=== PATIENT | female | born 1975 | race Hispanic/Latino ===

== ENCOUNTER 2017-12-31 16:36 | Emergency (ER) | payer SELFPAY, OTHER ==
[2017-12-31] MEDS ORDERED: Acetaminophen/Codeine 30-300mg Tablet ONE (18:54)
== END 2017-12-31 18:51 | disposition home or self-care (01) ==
LOC: ERS 16:36
DX: G89.29 Other chronic pain (principal); M25.461 Effusion, right knee; F41.9 Anxiety disorder, unspecified; Z87.891 Personal history of nicotine dependence
CPT/HCPCS: 99283

== ENCOUNTER 2018-07-27 05:56 | Emergency (ER) | payer OTHER, SELFPAY ==
[2018-07-27 06:25] LABS: Bilirubin Negative (Negative); Blood, Urine Negative (Negative); Clarity CLEAR (Clear); Glucose, Urine (Dipstick) >=1000 mg/dL (Negative); Leukocyte Negative (Negative); Nitrite Negative (Negative); Protein, Urine (Dipstick) Negative (Neg-Trace); Urobilinogen 0.2 mg/dL (0.2-1.0); pH, Urine 5.5 (5.0-9.0)
== END 2018-07-27 06:30 | disposition home or self-care (01) ==
LOC: ERS 05:56
DX: N76.0 Acute vaginitis (principal); L02.31 Cutaneous abscess of buttock; F41.9 Anxiety disorder, unspecified; Z87.891 Personal history of nicotine dependence
CPT/HCPCS: 81003; 99283

== ENCOUNTER 2019-12-22 13:12 | Outpatient (CLI) | payer OTHER ==
--- NOTE | 2019-12-22 16:05 | MMO ---
Bilateral MAMMO Bilat Screen DDI+RODRIGO. CLINICAL HISTORY: Patient is 44 years old and is seen for screening. The patient has the following family history of breast cancer: 2 maternal aunts. The patient has no personal history of cancer. VIEWS: The views performed were: bilateral craniocaudal and bilateral mediolateral oblique. FILMS COMPARED: The present examination has been compared to a prior imaging study performed at [facility] on 11/18/2014. This study has been interpreted with the assistance of computer-aided detection. MAMMOGRAM FINDINGS: There are scattered fibroglandular densities. There are new tiny calcs in the left upper outer breast. In the right breast, there are no suspicious masses, calcifications or areas of architectural distortion. IMPRESSION: FINDING IN THE LEFT BREAST REQUIRES ADDITIONAL EVALUATION. MAGNIFICATION VIEWS ARE RECOMMENDED. THE RESULTS OF THIS EXAM WERE SENT TO THE PATIENT. ACR BI-RADS Category 0 - Incomplete: Need additional imaging evaluation. [facility] will notify the patient of the need for additional imaging services. MAMMOGRAPHY NOTE: 1. A negative mammogram report should not delay a biopsy if a dominant of clinically suspicious mass is present. 2. Approximately 10% to 15% of breast cancers are not detected by mammography. 3. Adenosis and dense breasts may obscure an underlying neoplasm. Reported by: BABAR ACOSTA MD Electonically Signed: [id number]
== END 2019-12-22 13:13 | disposition home or self-care (01) ==
LOC: BICMAMMO 13:12
DX: Z12.31 Encounter for screening mammogram for malignant neoplasm of breast (principal); Z80.3 Family history of malignant neoplasm of breast
CPT/HCPCS: 77063; 77067

== ENCOUNTER 2020-01-08 13:53 | Outpatient (CLI) | payer OTHER ==
--- NOTE | 2020-01-08 14:22 | MMO ---
Left Breast MAMMO Unilat Diag DDI LT+RODRIGO. CLINICAL HISTORY: Patient is 44 years old and is seen for additional evaluation requested from prior study. The patient has the following family history of breast cancer: 2 maternal aunts. The patient has no personal history of cancer. VIEWS: The views performed were: left craniocaudal spot compression magnification; left mediolateral spot compression magnification; and left mediolateral with tomosynthesis. FILMS COMPARED: The present examination has been compared to prior imaging studies performed at [facility] on 11/18/2014 and 12/22/2019. This study has been interpreted with the assistance of computer-aided detection. MAMMOGRAM FINDINGS: There are scattered fibroglandular densities. The tiny new calcs in the left upper outer breast are indeterminate and should be biopsied. IMPRESSION: FINDING IN THE LEFT BREAST IS SUSPICIOUS. A STEREOTACTIC BREAST BIOPSY IS RECOMMENDED. THE RESULTS OF THIS EXAM WERE SENT TO THE PATIENT. ACR BI-RADS Category 4 - Suspicious abnormality - biopsy should be considered D/W pt in person @ 1420 hrs. MAMMOGRAPHY NOTE: 1. A negative mammogram report should not delay a biopsy if a dominant of clinically suspicious mass is present. 2. Approximately 10% to 15% of breast cancers are not detected by mammography. 3. Adenosis and dense breasts may obscure an underlying neoplasm. Reported by: BABAR ACOSTA MD Electonically Signed: [id number]
== END 2020-01-08 13:54 | disposition home or self-care (01) ==
LOC: BICMAMMO 13:53
PROVIDERS: ATTEND Nurse Practitioner Family
DX: R92.1 Mammographic calcification found on diagnostic imaging of breast (principal)
CPT/HCPCS: G0279

== ENCOUNTER 2020-01-26 04:08 | Emergency (ER) | payer SELFPAY ==
[2020-01-26 04:51] LABS: Bilirubin Negative (Negative); Blood, Urine Negative (Negative); Clarity Clear (Clear); Glucose, Urine (Dipstick) 100 mg/dL (Negative); Leukocyte Negative Leu/uL (Negative); Nitrite Negative (Negative); Protein, Urine (Dipstick) Negative (Neg-Trace); Urobilinogen Normal mg/dL (Less than 2)
[2020-01-26 04:55] LABS: #Eosinphils 0.1 thou/uL (0.0-0.7); #Lymphocytes 2.6 thou/uL (1.20-3.40); #Monocytes 0.5 thou/uL (0.11-0.59); #Neutrophils 5.8 thou/uL (1.40-6.50); %Basophils 0.4 % (0.0-1.0); %Eosinophils 1.6 % (0.0-10.0); %Monocytes 5.2 % (0.0-10.0); %Neutrophils 63.8 % (42.0-75.0); Hemoglobin 11.4 g/dL (12.0-16.0); Mean Corpuscular HGB CONC 32.7 g/dL (32.0-36.0); Mean Corpuscular Hemoglobin 24.6 pg (27.0-31.0); Mean Corpuscular Volume 75.4 fL (78.0-98.0); Mean Platelet Volume 8.4 fL (7.4-10.4); Platelet Count 296 thou/uL (130-400); RBC Distribution Width 15.2 % (11.5-14.5); Red Blood Cell (RBC) Count 4.63 mill/uL (4.20-5.40); White Blood Cell (WBC) Count 9.1 thou/uL (4.8-10.8)
[2020-01-26 05:18] LABS: ALT (SGPT) 11 U/L (8-55); AST (SGOT) 14 U/L (5-34); Alkaline Phosphatase 114 U/L (40-110); Anion Gap 15 mmol/L (10-20); BUN (Urea Nitrogen) 8 mg/dL (7.0-18.7); Bilirubin, Total 0.4 mg/dL (0.2-1.2); Calc. Creatinine Clearance 0 mL/min (70-130); Calcium 9.2 mg/dL (7.8-10.44); Carbon Dioxide 21 mmol/L (22-29); Chloride 105 mmol/L (98-107); Estimated GFR-MDRD Greater than 90; Globulin 3.9 g/dL (2.4-3.5); Glucose 238 mg/dL (70-105); Potassium 4.3 mmol/L (3.5-5.1); Protein, Total 7.9 g/dL (6.0-8.3); Sodium 137 mmol/L (136-145)
--- NOTE | 2020-01-26 07:37 | CT ---
PRELIMINARY REPORT/[facility]/EMERGENCY AFTER HOURS PROCEDURE: EXAM: CT Head Without Intravenous Contrast. CLINICAL HISTORY: Pt presents with 2-3 weeks of generalized weakness/fatigue. Pt awoke at 0300 this morning with numbne ss to her left arm and leg. Pt denies MOHAN, CP, neck pain, unilateral weakness, vision changes, speech changes. Pt reports increased stress due to planned biopsy of left breast next week. COMPARISON: None provided. FINDINGS: BRAIN: No intracranial hemorrhage, mass-effect, or midline shift. No CT evidence of acute infarct in a large vascular territory. VENTRICLES: Normal in size and configuration for age. SINUSES AND MASTOIDS: Mild paranasal sinus mucosal thickening. Trace thickening/fluid in the mastoid air cells. IMPRESSION: No acute intracranial abnormality. ELECTRONICALLY SIGNED BY: Logan Diaz MD Jan 26, 2020 5:14:01 AM CDT This report is intended for review by the ordering physician only, in accordance of law. If you recei ve this report in error, please call [facility] at [phone]. FINAL REPORT EMERGENCY AFTER HOURS CT BRAIN WITHOUT CONTRAST: FINDIGS/IMPRESSION: I agree with the findings and impression given in the preliminary report per [facility] physici an. No evidence of acute intracranial abnormality.
--- NOTE | 2020-01-28 13:45 | EKG ---
Test Reason : WEAKNESS Blood Pressure : / mmHG Vent. Rate : 083 BPM Atrial Rate : 083 BPM P-R Int : 140 ms QRS Dur : 070 ms QT Int : 390 ms P-R-T Axes : 017 -21 020 degrees QTc Int : 458 ms Normal sinus rhythm Normal ECG Confirmed by LANDY BAIN ([id number]), acquisition editor PRASHANTH HANLEY ([id number]) on 01/28/2020 1:45:17 PM Referred By: Confirmed By:LANDY BAIN
== END 2020-01-26 06:03 | disposition home or self-care (01) ==
LOC: ERS 04:08
DX: F43.9 Reaction to severe stress, unspecified (principal); R20.2 Paresthesia of skin; E11.9 Type 2 diabetes mellitus without complications; F41.9 Anxiety disorder, unspecified; Z87.891 Personal history of nicotine dependence; Z79.84 Long term (current) use of oral hypoglycemic drugs
CPT/HCPCS: 36415; 51701; 70450; 80053; 81003; 84484; 85025; 93005; A4353

== ENCOUNTER → 2020-01-27 | Day surgery (SDC) | payer OTHER ==
--- NOTE | 2020-01-27 11:19 | MMO ---
Stereotactic guided biopsy left breast microcalcifications Surgical specimen mammography Left diagnostic mammogram post biopsy HISTORY: Abnormal mammogram. Microcalcifications. FINDINGS: After explaining the procedure and answering all questions, the microcalcification cluster at the superior lateral aspect of the left breast was again visualized. Sterile technique, buffered local anesthesia, stereotactic guidance, and a lateral approach were used to carefully advance a 10-g auge vacuum-assisted needle into the area of microcalcifications. Position was confirmed with stereotactic imaging. A total of 8 10-gauge specimens were obtained. Surgical specimen mammography shows microcalcifications in the specimen. Localization clip was placed in the biopsy bed under stereotactic guidance. Needle was removed. Patient tolerated the procedure well and was dismissed in good condition. Post biopsy mammogram imaging shows heterogeneously dense fibroglandular tissue. Localization clip an d small gas pocket are now evident at the superior lateral aspect of the breast in region of biopsy. No calcifications remaining in this area. IMPRESSION : Technically successful stereotactic guided biopsy left breast microcalcifications. Pathology is pendi ng.
== END ==
LOC: MAMMO 06:55
PROVIDERS: ATTEND Nurse Practitioner Family
PROC: 0H95XZX Drainage of Chest Skin, External Approach, Diagnostic (ICD-10-PCS; principal; 2020-01-27)
DX: N60.12 Diffuse cystic mastopathy of left breast (principal)
CPT/HCPCS: 19081; 76098; 88305

== ENCOUNTER 2021-04-12 18:39 | Inpatient (IN) | payer OTHER, SELFPAY ==
[2021-04-12 19:12] LABS: #Eosinphils 0.2 thou/uL (0.0-0.7); #Lymphocytes 3.1 thou/uL (1.20-3.40); #Monocytes 0.5 thou/uL (0.11-0.59); #Neutrophils 5.2 thou/uL (1.40-6.50); %Eosinophils 2.3 % (0.0-10.0); %Lymphocytes 34.4 % (21.0-51.0); %Monocytes 5.9 % (0.0-10.0); %Neutrophils 57.4 % (42.0-75.0); Hemoglobin 11.4 g/dL (12.0-16.0); Mean Corpuscular HGB CONC 34.4 g/dL (32.0-36.0); Mean Corpuscular Hemoglobin 26.9 pg (27.0-31.0); Mean Corpuscular Volume 78.3 fL (78.0-98.0); Mean Platelet Volume 7.9 fL (7.4-10.4); Platelet Count 290 thou/uL (130-400); Red Blood Cell (RBC) Count 4.25 mill/uL (4.20-5.40)
[2021-04-12] MEDS ORDERED: Morphine 4 MG/ML VIAL ONE (19:31)
[2021-04-12] MEDS ORDERED: Ketorolac Tromethamine 30 MG/ML VIAL ONE (19:31)
[2021-04-12 19:41] LABS: ALT (SGPT) 21 U/L (8-55); AST (SGOT) 18 U/L (5-34); Alkaline Phosphatase 139 U/L (40-110); Anion Gap 11 mmol/L (10-20); BUN (Urea Nitrogen) 10 mg/dL (7.0-18.7); Bilirubin, Total 0.2 mg/dL (0.2-1.2); Calc. Creatinine Clearance 0 mL/min (70-130); Calcium 9.5 mg/dL (7.8-10.44); Carbon Dioxide 29 mmol/L (22-29); Chloride 102 mmol/L (98-107); Globulin 3.5 g/dL (2.4-3.5); Glucose 248 mg/dL (70-105); Lipase 13 U/L (8-78); Potassium 4.2 mmol/L (3.5-5.1); Protein, Total 7.5 g/dL (6.0-8.3); Sodium 138 mmol/L (136-145)
[2021-04-12] MEDS ORDERED: Piperacillin/Tazobactam 3.375 GM VIAL ONE (20:13)
[2021-04-12] MEDS ORDERED: Morphine 2 MG/ML VIAL SLOW IVP PRN (21:41)
[2021-04-12] MEDS ORDERED: Ondansetron PF 4 MG/2 ML Vial IVP PRN (22:33)
[2021-04-12 23:46] VITALS: BMI 41.8
[2021-04-13] MEDS ORDERED: Piperacillin/Tazobactam 3.375 GM in Sodium Chloride 0.9% 100 ML IVPB SCH ×3 (04:00→12:00)
[2021-04-13] MEDS: Lactated Ringer's 1,000 ML IV SCH ×3 (04:14→22:45)
[2021-04-13] MEDS ORDERED: Morphine 4 MG/ML VIAL SLOW IVP PRN ×2 (07:42→21:42)
[2021-04-13] MEDS ORDERED: Ondansetron ODT 4 MG TAB PO PRN (07:42)
[2021-04-13] MEDS ORDERED: Ondansetron ODT 8 MG TAB SL PRN (07:42)
[2021-04-13] MEDS ORDERED: Lactated Ringer's 1,000 ML IV SCH (07:45)
[2021-04-13] MEDS ORDERED: Ketorolac Tromethamine 30 MG/ML VIAL IVP SCH (07:45)
[2021-04-13] MEDS ORDERED: Dextrose 50% Abboject 50 ML SYRINGE SLOW IVP PRN (09:16)
[2021-04-13] MEDS ORDERED: Dextrose 5% in Water 1,000 ML IV PRN (09:16)
[2021-04-13 12:01] LABS: SARS-CoV-2 PCR by NAA Not Detected (NotDetected)
[2021-04-13] MEDS ORDERED: Ketorolac Tromethamine 30 MG/ML VIAL IVP PRN (14:00)
[2021-04-13] MEDS ORDERED: EPINEPHrine 1 MG/ML AMP ONE (17:23)
[2021-04-13] MEDS ORDERED: Bupivacaine PF 0.5% 30 ML VIAL ONE (17:23)
[2021-04-13] MEDS ORDERED: Iothalamate Meglumine 60% 50 ML VIAL FS ONE (17:24)
[2021-04-13] MEDS ORDERED: Fentanyl 100 MCG/2 ML VIAL ONE ×3 (18:28→20:03)
[2021-04-13] MEDS ORDERED: SUGAMMADEX SODIUM 200 MG/2 ML VIAL ONE (18:29)
[2021-04-13] MEDS ORDERED: SUGAMMADEX SODIUM 500 MG/5 ML VIAL ONE (18:29)
[2021-04-13] MEDS ORDERED: Glycopyrrolate 0.2 MG/ML 5 ML SYRINGE ONE (18:36)
[2021-04-13] MEDS ORDERED: Rocuronium Bromide 10 MG/ML (10ML VIAL) ONE (18:36)
[2021-04-13] MEDS ORDERED: Ondansetron PF 4 MG/2 ML Vial ONE ×2 (18:36→20:09)
[2021-04-13] MEDS ORDERED: Ketorolac Tromethamine 30 MG/ML VIAL ONE (18:36)
[2021-04-13] MEDS ORDERED: Lidocaine 1% PF 5 ML VIAL ONE (18:36)
[2021-04-13] MEDS ORDERED: Dexamethasone 20 MG/5 ML VIAL ONE (18:36)
[2021-04-13] MEDS ORDERED: PROPOFOL 200 MG/20 ML VIAL ONE (18:36)
[2021-04-13] MEDS ORDERED: PACU-Morphine 4MG/ML VIAL SLOW IVP PRN (19:01)
[2021-04-13] MEDS ORDERED: Promethazine HCl 25 MG/ML VIAL IM PRN (19:01)
[2021-04-13] MEDS ORDERED: Morphine Sulfate 2 MG/ML SYRINGE SLOW IVP PRN (19:01)
[2021-04-13] MEDS ORDERED: Promethazine HCl 25 MG/ML VIAL IVPB PRN (19:01)
[2021-04-13] MEDS ORDERED: HYDROmorphone 2 MG/ML VIAL SLOW IVP PRN (19:01)
[2021-04-13] MEDS ORDERED: Ondansetron HCl/PF 4 MG/2 ML Vial IVP PRN (19:01)
[2021-04-13] MEDS ORDERED: traMADol HCl 50 MG TAB PO PRN (19:36)
[2021-04-13] MEDS ORDERED: Ibuprofen 600 MG TAB PO PRN (19:36)
[2021-04-13] MEDS ORDERED: Acetaminophen 500 MG TAB PO PRN (19:36)
[2021-04-13] MEDS ORDERED: HYDROmorphone 0.5 MG/0.5 ML SYRINGE ONE ×2 (20:00→20:05)
[2021-04-13] MEDS ORDERED: Promethazine HCl 25 MG/ML VIAL ONE (20:22)
[2021-04-13] MEDS: Ketorolac Tromethamine 30 MG/ML VIAL IVP SCH (22:28)
[2021-04-13] MEDS: Ondansetron PF 4 MG/2 ML Vial IVP PRN (22:29)
[2021-04-13] MEDS: HumaLOG 300 UNITS/3 ML VIAL SC PRN (22:44)
[2021-04-14] MEDS: Ondansetron PF 4 MG/2 ML Vial IVP PRN (03:56)
[2021-04-14] MEDS: Lactated Ringer's 1,000 ML IV SCH (03:58)
[2021-04-14] MEDS: Ketorolac Tromethamine 30 MG/ML VIAL IVP SCH ×2 (03:58→12:02)
[2021-04-14] MEDS: HumaLOG 300 UNITS/3 ML VIAL SC PRN ×2 (05:29→12:03)
[2021-04-14 11:07] LABS: #Lymphocytes 1.4 thou/uL (1.20-3.40); #Monocytes 0.3 thou/uL (0.11-0.59); #Neutrophils 12.2 thou/uL (1.40-6.50); %Eosinophils 0.1 % (0.0-10.0); %Lymphocytes 9.8 % (21.0-51.0); %Monocytes 2.4 % (0.0-10.0); %Neutrophils 87.7 % (42.0-75.0); Hemoglobin 12.5 g/dL (12.0-16.0); Mean Corpuscular HGB CONC 33.8 g/dL (32.0-36.0); Mean Corpuscular Hemoglobin 26.8 pg (27.0-31.0); Mean Corpuscular Volume 79.2 fL (78.0-98.0); Mean Platelet Volume 8.2 fL (7.4-10.4); Platelet Count 292 thou/uL (130-400); RBC Distribution Width 14.2 % (11.5-14.5); Red Blood Cell (RBC) Count 4.67 mill/uL (4.20-5.40); White Blood Cell (WBC) Count 13.9 thou/uL (4.8-10.8)
[2021-04-14 11:27] LABS: ALT (SGPT) 63 U/L (8-55); AST (SGOT) 78 U/L (5-34); Albumin 3.6 g/dL (3.5-5.0); Alkaline Phosphatase 116 U/L (40-110); Anion Gap 17 mmol/L (10-20); BUN (Urea Nitrogen) 9 mg/dL (7.0-18.7); Bilirubin, Total 0.3 mg/dL (0.2-1.2); Calc. Creatinine Clearance 124 mL/min (70-130); Calcium 8.7 mg/dL (7.8-10.44); Carbon Dioxide 19 mmol/L (22-29); Chloride 103 mmol/L (98-107); Glucose 329 mg/dL (70-105); Potassium 4.1 mmol/L (3.5-5.1); Protein, Total 7.6 g/dL (6.0-8.3); Sodium 135 mmol/L (136-145)
[2021-04-14 16:22] VITALS: BP 120/80; TEMP 98.2
== END 2021-04-14 17:35 | disposition home or self-care (01) | DRG 418 ==
LOC: ERS 18:39 → SJJU 19:45 → OBSVTOIN 04-14 11:18
PROVIDERS: ADMIT Surgery; ATTEND Surgery
PROC: 0FT44ZZ Resection of Gallbladder, Percutaneous Endoscopic Approach (ICD-10-PCS; principal; 2021-04-13)
DX: K80.00 Calculus of gallbladder with acute cholecystitis without obstruction (principal); E11.9 Type 2 diabetes mellitus without complications; Z20.822 Contact with and (suspected) exposure to COVID-19; I10 Essential (primary) hypertension; E66.01 Morbid (severe) obesity due to excess calories; K42.9 Umbilical hernia without obstruction or gangrene; Z68.41 Body mass index [BMI] 40.0-44.9, adult; Z79.84 Long term (current) use of oral hypoglycemic drugs; Z79.899 Other long term (current) drug therapy; Z98.51 Tubal ligation status; Z87.891 Personal history of nicotine dependence
CPT/HCPCS: 36415; 36416; 76705; 80053; 83690; 84484; 85025; 88304; 93005; 96365; 96375; 96376; G0378; J0171; J1100; J1170; J1610; J1815; J1885; J2270; J2405; J2543; J2550; J2704; J3010; J3490; Q9961; S0020; U0003; U0005

== ENCOUNTER 2021-06-21 | Emergency (ER) | payer SELFPAY | END 2021-06-21 13:22 | disposition left against medical advice (07) | DX: Z53.21 Procedure and treatment not carried out due to patient leaving prior to being seen by health care provider (principal) ==

== ENCOUNTER 2021-11-04 10:09 | Emergency (ER) | payer SELFPAY ==
[2021-11-04] MEDS ORDERED: Acetaminophen 500 MG TAB ONE (12:35)
== END 2021-11-04 13:18 | disposition home or self-care (01) ==
LOC: ERS 10:09
DX: S46.912A Strain of unspecified muscle, fascia and tendon at shoulder and upper arm level, left arm, initial encounter (principal); E11.9 Type 2 diabetes mellitus without complications; Z79.84 Long term (current) use of oral hypoglycemic drugs; X50.9XXA Other and unspecified overexertion or strenuous movements or postures, initial encounter

== ENCOUNTER 2022-12-07 09:39 | Emergency (ER) | payer SELFPAY ==
[2022-12-07] MEDS ORDERED: Ketorolac Tromethamine 30 MG/ML VIAL ONE (10:54)
[2022-12-07] MEDS ORDERED: Dexameth. Sod Phosp. 10 MG/ML (CHEMO USE ONLY) ONE (10:54)
== END 2022-12-07 11:16 | disposition home or self-care (01) ==
LOC: ERS 09:39
DX: G56.01 Carpal tunnel syndrome, right upper limb (principal); M79.89 Other specified soft tissue disorders; R51.9 Headache, unspecified; E11.9 Type 2 diabetes mellitus without complications; Z79.84 Long term (current) use of oral hypoglycemic drugs; Z79.899 Other long term (current) drug therapy
CPT/HCPCS: 96372; 99283; J1100; J1885

== ENCOUNTER 2023-08-09 04:42 | Emergency (ER) | payer SELFPAY ==
[2023-08-09] MEDS ORDERED: Ibuprofen 200 MG TAB ONE (05:42)
[2023-08-09] MEDS ORDERED: Ondansetron ODT 4 MG TAB ONE (05:43)
[2023-08-09] MEDS ORDERED: Fluconazole 100 MG TAB PO SCH (06:00)
[2023-08-09 06:02] LABS: Bacteria/HPF None Seen HPF (None Seen); Bilirubin Negative (Negative); Blood, Urine Negative (Negative); CAUTI Indications for Culture Dysuria,urgency,freq; Clarity Clear (Clear); Glucose, Urine (Dipstick) Greater than 1000 mg/dL (Negative); Ketone, Urine Negative (Negative); Leukocyte Negative Leu/uL (Negative); Nitrite Negative (Negative); Pregnancy Test - Urine (BHCG) Negative (Negative); Pregu Control Background? CLEAR/WHITE (CLR/WHITE); Pregu Control Bar Appear? YES (CONTROL BAR); Protein, Urine (Dipstick) Negative (Neg-Trace); RBC/HPF 0-3 HPF (0-3); Squamous Epithelial 0-3 HPF (0-3); Urobilinogen Normal mg/dL (Less than 2); WBC/HPF 0-3 HPF (0-3); pH, Urine 5.5 (5.0-9.0)
[2023-08-09 06:04] LABS: Urine Culture Reflex No No
[2023-08-09 06:30] LABS: SARS-CoV-2 NAA Rapid Test DETECTED (NotDetected)
== END 2023-08-09 07:29 | disposition home or self-care (01) ==
LOC: ERS 04:42
DX: U07.1 COVID-19 (principal); B37.31 Acute candidiasis of vulva and vagina; E11.9 Type 2 diabetes mellitus without complications; Z79.899 Other long term (current) drug therapy; Z79.84 Long term (current) use of oral hypoglycemic drugs
CPT/HCPCS: 81001; 81025; 99284; Q0162

== ENCOUNTER 2025-04-21 19:27 | Emergency (ER) | payer SELFPAY ==
[2025-04-21] MEDS ORDERED: Ketorolac Tromethamine 30 MG (1 mL) VIAL ONE (20:22)
[2025-04-21] MEDS ORDERED: Orphenadrine Citrate 60 MG/2 ML VIAL ONE (20:23)
[2025-04-21 20:29] LABS: #Basophils Less than 0.03 10x3/uL (0.0-0.2); #Eosinophils 0.27 10x3/uL (0.0-0.7); #Monocytes 0.60 10x3/uL (0.11-0.59); #Neutrophils 5.03 10x3/uL (1.40-6.50); %Basophils 0.1 % (0.0-1.0); %Eosinophils 2.8 % (0.0-10.0); %Lymphocytes 37.9 % (21.0-51.0); %Monocytes 6.3 % (0.0-10.0); %Neutrophils 52.8 % (42.0-75.0); Hematocrit 35.7 % (36.0-47.0); Hemoglobin 12.1 g/dL (12.0-16.0); Mean Corpuscular Hemoglobin 25.8 pg (27.0-31.0); Mean Corpuscular Volume 76.1 fL (78.0-98.0); Platelet Count 275 10x3/uL (130-400); Red Blood Cell (RBC) Count 4.69 mill/uL (4.20-5.40); White Blood Cell (WBC) Count 9.54 10x3/uL (4.8-10.8)
[2025-04-21 20:46] LABS: ALT (SGPT) 14 U/L (Less than 34); AST (SGOT) 31 U/L (11-34); Albumin 3.9 g/dL (3.1-4.5); Alkaline Phosphatase 143 U/L (40-110); Anion Gap 16 mmol/L (10-20); BUN (Urea Nitrogen) 13 mg/dL (7.0-18.7); Bilirubin, Total 0.3 mg/dL (0.3-1.2); Calc. Creatinine Clearance 0 mL/min (70-130); Calcium 9.1 mg/dL (7.8-10.44); Carbon Dioxide 22 mmol/L (22-29); Chloride 105 mmol/L (98-107); Globulin 4.4 g/dL (2.4-3.5); Glucose 324 mg/dL (70-105); Potassium 4.2 mmol/L (3.5-5.1); Sodium 139 mmol/L (136-145)
[2025-04-21 20:51] LABS: Troponin I Less than 0.010 ng/mL (< 0.028)
[2025-04-21 21:48] LABS: Bacteria/HPF None Seen HPF (None Seen); CAUTI Indications for Culture Acute Hematuria; Glucose, Urine (Dipstick) Greater than 1000 mg/dL (Negative); Leukocyte Negative Leu/uL (Negative); Protein, Urine (Dipstick) Negative (Neg-Trace); RBC/HPF 0-3 HPF (0-3); Specific Gravity, Urine 1.034 (1.002-1.036)
[2025-04-21 21:49] LABS: Urine Culture Reflex No No
== END 2025-04-21 22:34 | disposition home or self-care (01) ==
LOC: ERS 19:27
DX: M54.6 Pain in thoracic spine (principal); R42 Dizziness and giddiness; M54.50 Low back pain, unspecified; M25.511 Pain in right shoulder; R07.9 Chest pain, unspecified; R29.700 NIHSS score 0; E11.9 Type 2 diabetes mellitus without complications
CPT/HCPCS: 71045; 80053; 81001; 84484; 85025; 93005; 96374; 96375; J1885; J2360